=== PATIENT | female | born 1975 | race Two or more races ===

== ENCOUNTER 2024-03-25 11:43 | Inpatient (IN) | payer OTHER ==
[~2024-03-25] VITALS: Ht 157.5 cm; Wt 65.8 kg
--- NOTE | 2024-03-25 11:47 | NUR ---
SE RECIBE PTE EN [place] LA CUAL SE OBSERVA CON DEBILIDAD. ESPOSO REFIERE SANGRADO VAGINAL ABUNDANTE. PTE DE CE BRICE ([email or web address]). PRESENTA SINTOMAS DESDE EL MIERCOLES.
[2024-03-25] MEDS ORDERED: 0.9 % SODIUM CHLORIDE 1,000 ML IV STA (11:54)
--- NOTE | 2024-03-25 12:04 | NUR ---
RN MAN ORIENTA SOBRE TRATAMIENTO MEDICO. SE CANALIZA VENA Y SE SHADI MUESTRA DE LAB POR ORDEN MEDICA. SE COMIENZA TRATAMIENTO DE IV FLUID
[2024-03-25 12:44] LABS: HEMATOCRIT 24.9 % (36.0-45.00); MEAN CELL VOLUME 82.2 fL (80.00-100.00); MEAN CORPUSCULAR HGB CONC 33.1 g/dl (32.0-36.0); PLATELET COUNT 231 K/uL (150-450); RED BLOOD COUNT 3.03 M/uL (4.00-6.00); RED CELL DISTRIBUTION WIDTH 14.6 % (11.5-14.5)
[2024-03-25 12:45] LABS: HEMOGLOBIN 8.2 g/dL (12.0-15.00)
[2024-03-25 12:50] LABS: INR 1.03; PARTIAL THROMBOPLASTIN TIME 23.6 SECONDS (22.0-34.0); PROTHROMBIN TIME 11.2 SECONDS (9.0-11.5)
[2024-03-25 12:55] LABS: CALCIUM 8.2 mg/dL (8.5-10.1); CREATININE SERUM 0.78 mg/dL (0.55-1.02); GFR 79.16; POTASSIUM 3.53 mEq/L (3.5-5.1)
[2024-03-25] MEDS ORDERED: ONDANSETRON HCL 2 MG/ML VIAL IV STA (13:35)
[2024-03-25 13:40] LABS: PH,URINE 6.5 (5.0-8.0); URINE APPEARANCE Clear; URINE BILIRRUBIN Negative (NEGATIVE); URINE BLOOD Small; URINE COLOR Yellow; URINE GLUCOSE Negative (NEGATIVE); URINE KETONE 15 (NEGATIVE); URINE LEUKOCYTE Negative; URINE NITRATE Negative; URINE PROTEIN 30 (NEGATIVE); URINE UROBILINOGEN 0.2 E.U./dl
[2024-03-25 13:41] LABS: URINE BACTERIA 22.6 uL (0.0-1933); URINE EPITHELIAL CELLS 3.8 uL (0.0-38.8); URINE WBC 3.7 uL (0.0-23.2)
[2024-03-25] MEDS ORDERED: MEPERIDINE HCL/PF 25 MG/ML VIAL IV ONE (13:45)
[2024-03-25 13:48] LABS: URINE CAST 0.15 uL (0.0-1.40)
--- NOTE | 2024-03-25 15:22 | NUR ---
PTE ALERTA Y ORIENTADA X 3 ESFERAS EN CAMA CON BARANDAS ELEVADAS,EN COMPANIA DE FAMILIAR,AREA DE VENOPUNCION PATENTE Y LORRAINE DE EDEMA.PENDIENTE A REPETIRSE CBC A LAS 4PM.
--- NOTE | 2024-03-25 16:02 | NUR ---
SE RANDALL MUESTRA BAJO MEDIDAS ASEPTICAS.
[2024-03-25 16:16] LABS: MEAN CELL VOLUME 82.4 fL (80.00-100.00); MEAN CORPUSCULAR HEMOGLOBIN 27.7 pg (27.00-32.0); MEAN CORPUSCULAR HGB CONC 33.6 g/dl (32.0-36.0); PLATELET COUNT 203 K/uL (150-450); RED BLOOD COUNT 2.45 M/uL (4.00-6.00); RED CELL DISTRIBUTION WIDTH 14.9 % (11.5-14.5)
[2024-03-25 16:17] LABS: HEMATOCRIT 20.2 % (36.0-45.00); HEMOGLOBIN 6.8 g/dL (12.0-15.00)
[2024-03-25] MEDS ORDERED: RINGERS SOLUTION,LACTATED 1,000 ML IV SCH (16:30)
--- NOTE | 2024-03-25 17:00 | NUR ---
SE ORIENTA A PACIENTE SOBRE PROCESO DE TRANSFUSION DE HERON, PACIENTE REFIERE ENTENDER. SE COLECTAN MUESTRAS BAJO MEDIDAS ASEPTICAS, SE REALIZA REQUISION PARA 4 UNIDADES DE PRBC. SE LLEVAN TUBOS PILOTOS AL LABORATORIO, PERSONAL DE LABORATORIO REALIZA LLAMADA A BANCO DE HERON Y NOTIFICA UNIDADES DE PRBC. SE COLECTA MUESTRA DE TIPO Y CHRISTINE Y SE LLEVA AL LABORATORIO. SE PROVEE CONSENTIMIENTO DE TRANSFUSION DE HERON, PACIENTE Y MEDICO FIRMA DOCUMENTO. SE MANTIENE EN OBSERVACION POR CAMBIOS.
[2024-03-25] MEDS ORDERED: ESTROGENS, CONJUGATED 25 MG VIAL IV STA (18:46)
[2024-03-25 20:02] VITALS: BP 105/69
[2024-03-25 21:35] VITALS: BP 107/68; O2SAT 99
[2024-03-26 00:38] VITALS: BP 108/65
[2024-03-26] MEDS ORDERED: ESTROGENS, CONJUGATED 25 MG VIAL IV STA (02:56)
[2024-03-26] MEDS ORDERED: TRANEXAMIC ACID 100MG/1ML (1000MG) AMPUL IV STA (04:20)
[2024-03-26] MEDS ORDERED: ACETAMINOPHEN 500 MG GEL..CAP PO PRN (04:45)
[2024-03-26 08:26] VITALS: BP 100/60
[2024-03-26] MEDS ORDERED: ESTROGENS, CONJUGATED 25 MG VIAL IV NR (11:30)
[2024-03-26] MEDS ORDERED: TRANEXAMIC ACID 100MG/1ML (1000MG) AMPUL IV SCH (13:00)
[2024-03-27 00:04] VITALS: BP 92/60
[2024-03-27 09:16] LABS: ALBUMIN 2.3 gm/dL (3.4-5.0); BILIRUBIN TOTAL 0.8 mg/dL (0.3-1.2); CALCIUM 7.7 mg/dL (8.5-10.1); CREATININE SERUM 0.57 mg/dL (0.55-1.02); GFR 113.21; GLOBULINA 2.8 G/DL (2.4-3.5); POTASSIUM 3.53 mEq/L (3.5-5.1); TOTAL PROTEIN 5.1 gm/dL (6.4-8.2)
[2024-03-27 09:38] LABS: MEAN CELL VOLUME 81.8 fL (80.00-100.00); MEAN CORPUSCULAR HGB CONC 34.7 g/dl (32.0-36.0); PLATELET COUNT 167 K/uL (150-450); RED BLOOD COUNT 3.18 M/uL (4.00-6.00); RED CELL DISTRIBUTION WIDTH 14.2 % (11.5-14.5)
[2024-03-27 09:39] LABS: PARTIAL THROMBOPLASTIN TIME 26.3 SECONDS (22.0-34.0); PROTHROMBIN TIME 10.9 SECONDS (9.0-11.5)
[2024-03-27 09:41] LABS: MEAN CORPUSCULAR HEMOGLOBIN 28.3 pg (27.00-32.0)
[2024-03-27 11:41] LABS: PH,URINE 6.5 (5.0-8.0); URINE APPEARANCE Clear; URINE BILIRRUBIN Negative (NEGATIVE); URINE BLOOD Moderate; URINE COLOR Yellow; URINE GLUCOSE Negative (NEGATIVE); URINE KETONE Negative (NEGATIVE); URINE LEUKOCYTE Negative; URINE NITRATE Negative; URINE PROTEIN Negative (NEGATIVE); URINE UROBILINOGEN 0.2 E.U./dl
[2024-03-27 11:42] LABS: URINE BACTERIA 18.8 uL (0.0-1933); URINE EPITHELIAL CELLS 1.8 uL (0.0-38.8); URINE RBC 122.1 uL (0.0-20.8)
[2024-03-27 11:57] VITALS: BP 104/70
[2024-03-27 16:00] VITALS: BP 98/63
[2024-03-28 00:30] VITALS: BP 105/70
[2024-03-28 00:43] LABS: HEMOGLOBIN 9.4 g/dL (12.0-15.00); MEAN CELL VOLUME 84.4 fL (80.00-100.00); MEAN CORPUSCULAR HEMOGLOBIN 28.3 pg (27.00-32.0); MEAN CORPUSCULAR HGB CONC 33.6 g/dl (32.0-36.0); PLATELET COUNT 171 K/uL (150-450); RED BLOOD COUNT 3.32 M/uL (4.00-6.00); RED CELL DISTRIBUTION WIDTH 14.4 % (11.5-14.5)
[2024-03-28 08:00] VITALS: BP 96/64
[2024-03-28 11:11] LABS: HEMOGLOBIN 11.1 g/dL (12.0-15.00); MEAN CELL VOLUME 85.3 fL (80.00-100.00); MEAN CORPUSCULAR HEMOGLOBIN 28.8 pg (27.00-32.0); MEAN CORPUSCULAR HGB CONC 33.7 g/dl (32.0-36.0); PLATELET COUNT 189 K/uL (150-450); RED BLOOD COUNT 3.87 M/uL (4.00-6.00); RED CELL DISTRIBUTION WIDTH 14.4 % (11.5-14.5)
[2024-03-28] MEDS ORDERED: POVIDONE-IODINE 118 ML BOTT TOP ONE (15:15)
[2024-03-28] MEDS ORDERED: CEFAZOLIN SODIUM 1,000 MG VIAL IV ONE (15:15)
[2024-03-28] MEDS ORDERED: MEPERIDINE HCL/PF 50 MG/ML VIAL IV PRN (16:45)
[2024-03-28] MEDS ORDERED: PROMETHAZINE HCL 25 MG/ML AMPUL IV PRN (16:45)
[2024-03-28] MEDS ORDERED: RINGERS SOLUTION,LACTATED 1,000 ML IV SCH (17:00)
[2024-03-28] MEDS ORDERED: MORPHINE SULFATE 4 MG/ML VIAL IV ONE ×2 (17:20→17:35)
[2024-03-28 18:25] VITALS: O2SAT 100
[2024-03-28 18:28] VITALS: BP 108/71
[2024-03-29] VITALS: BP 119/75
[2024-03-29 06:51] LABS: HEMATOCRIT 31.5 % (36.0-45.00); HEMOGLOBIN 10.6 g/dL (12.0-15.00); MEAN CELL VOLUME 85.8 fL (80.00-100.00); MEAN CORPUSCULAR HEMOGLOBIN 28.8 pg (27.00-32.0); MEAN CORPUSCULAR HGB CONC 33.5 g/dl (32.0-36.0); PLATELET COUNT 212 K/uL (150-450); RED BLOOD COUNT 3.68 M/uL (4.00-6.00); RED CELL DISTRIBUTION WIDTH 14.6 % (11.5-14.5)
[2024-03-29 08:22] VITALS: BP 108/70
[2024-03-29] MEDS ORDERED: OxyCODONE HCL/APAP UD (PERCOCET) PO PRN (09:00)
[2024-03-29] MEDS ORDERED: SIMETHICONE 125 MG CAPSULE PO SCH (09:00)
[2024-03-29 15:58] VITALS: BP 116/70
[2024-03-29 19:56] VITALS: BP 103/67
[2024-03-30] VITALS: BP 106/70
[2024-03-30 08:40] VITALS: BP 127/82
[2024-03-30] MEDS ORDERED: DOCUSATE SODIUM 100MG CAP PO SCH (09:00)
[2024-03-30 16:00] VITALS: BP 102/59
== END 2024-03-30 18:07 | disposition home or self-care (01) | DRG 743 ==
LOC: ER 11:45 → EDBD 12:20 → OB/GYN 19:54
PROVIDERS: Emergency Medicine; ADMIT Obstetrics & Gynecology; ATTEND Obstetrics & Gynecology
PROC: 30233N1 Transfusion of Nonautologous Red Blood Cells into Peripheral Vein, Percutaneous Approach (ICD-10-PCS; 2024-03-26)
PROC: 0UT90ZZ Resection of Uterus, Open Approach (ICD-10-PCS; 2024-03-28)
PROC: 0UT70ZZ Resection of Bilateral Fallopian Tubes, Open Approach (ICD-10-PCS; principal; 2024-03-28 12:00)
DX: D25.1 Intramural leiomyoma of uterus (principal); D25.0 Submucous leiomyoma of uterus; Z20.822 Contact with and (suspected) exposure to COVID-19; D25.2 Subserosal leiomyoma of uterus; D64.9 Anemia, unspecified